=== PATIENT | female | born 1955 | race African-American/Black ===

== ENCOUNTER → 2020-10-07 | Day surgery (SDC) | payer OTHER | END | disposition home or self-care (01) | LOC: FMAMMOTONE 10:20 | PROVIDERS: ATTEND Internal Medicine | PROC: 0H9U3ZX Drainage of Left Breast, Percutaneous Approach, Diagnostic (ICD-10-PCS; principal; 2020-10-07) | DX: N60.32 Fibrosclerosis of left breast (principal) | CPT/HCPCS: 19081; 76098-TC-FY; 87899; 88305-TC; A4648 ==

== ENCOUNTER 2024-01-28 10:41 | Emergency (ER) | payer OTHER ==
[2024-01-28 10:55] VITALS: RESP 18; BMI 29.1
[2024-01-28] MEDS ORDERED: COLCHICINE 0.6 MG TAB ONE (13:04)
[2024-01-28] MEDS ORDERED: KETOROLAC TROMETHAMINE 30 MG/1 ML VIAL ONE (13:04)
[2024-01-28] MEDS: KETOROLAC TROMETHAMINE 30 MG/1 ML VIAL IM ONE (13:11)
[2024-01-28] MEDS: COLCHICINE 0.6 MG TAB PO ONE (13:11)
[2024-01-28 15:25] VITALS: BP 139/82; PULSE 80; TEMP 98.5
== END 2024-01-28 15:25 | disposition home or self-care (01) ==
LOC: JER 10:41
PROC: 3E0133Z Introduction of Anti-inflammatory into Subcutaneous Tissue, Percutaneous Approach (ICD-10-PCS; principal; 2024-01-28)
DX: M79.672 Pain in left foot (principal)
CPT/HCPCS: 82962; 99284-25